=== PATIENT | female | born 2000 | race Caucasian/White ===

== ENCOUNTER 2023-09-07 10:48 | Emergency (ER) | payer OTHER ==
[2023-09-07 11:59] VITALS: RESP 16; BMI 18.3
[2023-09-07] MEDS ORDERED: KETOROLAC TROMETHAMINE 30 MG/1 ML VIAL ONE (14:25)
[2023-09-07 14:26] LABS: BASO % 0.1 % (0-2.0); EOS % 0.9 % (0-4.5); HEMATOCRIT 39.1 % (32.4-45.2); HEMOGLOBIN 13.3 GM/dL (10.7-15.3); LYMPH % 11.9 % (8-40); MCH 30.6 pg (25.7-33.7); MCHC 34.1 g/dl (32.0-36.0); MEAN CELL VOLUME 89.7 fl (80-96); MEAN PLT VOLUME 7.7 fl (7.5-11.1); MONO % 3.9 % (3.8-10.2); NEUT % 83.2 % (42.8-82.8); PLATELET COUNT 312 10^3/uL (134-434); RBC 4.36 M/mm3 (3.60-5.2); RDW 12.6 % (11.6-15.6); URINE APPEARANCE CLEAR; URINE BILIRUBIN NEGATIVE (NEGATIVE); URINE COLOR YELLOW; URINE GLUCOSE (UA) NEGATIVE (NEGATIVE); URINE KETONE NEGATIVE (NEGATIVE); URINE LEUK ESTERASE NEGATIVE (NEGATIVE); URINE NITRITE NEGATIVE (NEGATIVE); URINE PROTEIN NEGATIVE (NEGATIVE); URINE UROBILINOGEN 0.2 mg/dL (0.2-1.0); WHITE BLOOD COUNT 11.8 K/mm3 (4.0-10.0)
[2023-09-07 14:29] LABS: HCG,QUALITATIVE URINE Negative
[2023-09-07] MEDS: KETOROLAC TROMETHAMINE 30 MG/1 ML VIAL IVPUSH ONE (14:29)
[2023-09-07 14:41] LABS: CALCIUM 9.3 mg/dL (8.5-10.1)
[2023-09-07 14:42] LABS: ALBUMIN 3.9 g/dl (3.4-5.0); BLOOD UREA NITROGEN 5.7 mg/dL (7-18)
[2023-09-07 14:45] LABS: CREATININE 0.6 mg/dL (0.55-1.3)
[2023-09-07 14:46] LABS: TOT PROT 7.1 g/dl (6.4-8.2)
[2023-09-07 14:47] LABS: BILIRUBIN,TOTAL 0.6 mg/dL (0.2-1)
[2023-09-07 18:34] VITALS: BP 118/67; PULSE 89
[2023-09-07 18:38] VITALS: TEMP 97.9
== END 2023-09-07 19:02 | disposition home or self-care (01) ==
LOC: JER 10:48
PROC: 3E0333Z Introduction of Anti-inflammatory into Peripheral Vein, Percutaneous Approach (ICD-10-PCS; principal; 2023-09-07)
DX: R10.32 Left lower quadrant pain (principal)
CPT/HCPCS: 36415; 74177-TC; 76830-TC; 80053; 81003; 84703; 85025; 86900; 87086; 87491; 87591; 87661; 99285-25; Q9967